=== PATIENT | female | born 1980 | race Caucasian/White ===

== ENCOUNTER 2023-05-12 23:09 | Emergency (ER) | payer SELFPAY ==
[~2023-05-12] VITALS: Ht 160 cm; Wt 65.6 kg
[2023-05-12 23:24] VITALS: O2SAT 100
[2023-05-12] MEDS ORDERED: BACITRACIN ZINC OINT UDPKT TOP ONE (23:45)
[2023-05-12] MEDS ORDERED: LIDOCAINE HCL/PF 1% 10 MG/ML 5ML VIAL INFIL ONE (23:45)
[2023-05-12] MEDS ORDERED: TETANUS, DIPHTHERIA, PERTUSSIS VAC/PF 0.5ML (>10YR OLD) IM ONE (23:45)
[2023-05-13 01:27] VITALS: BP 128/80; PULSE 70; RESP 16; TEMP 97.7
== END 2023-05-13 01:31 | disposition home or self-care (01) ==
LOC: ER 23:09
DX: Q18.1 Preauricular sinus and cyst (principal); D23.21 Other benign neoplasm of skin of right ear and external auricular canal
CPT/HCPCS: 90471; 99283; 90715; J3490; Z7610 ×3; 99282